=== PATIENT | male | born 1975 | race Caucasian/White ===

== ENCOUNTER 2017-05-23 17:20 | Emergency (ER) | payer OTHER ==
[~2017-05-23] VITALS: Ht 182.9 cm; Wt 116.3 kg
[~2017-05-23 17:20] MED LIST: PRED20TA PO
[2017-05-23 17:24] VITALS: TEMP 36.6; Ht 182.9 cm; Wt 116.3 kg
[2017-05-23] MEDS ORDERED: CEFTRIAXONE SOD INJ 1 GM ADDVIAL IV STA (17:49)
[2017-05-23] MEDS ORDERED: SULFAMETHOXAZOLE/TRIMETHOPRIM DS 800/160MG TAB PO STA (17:49)
--- NOTE | 2017-05-23 17:53 | EMERGENCY ROOM VISIT NOTE ---
History First contact with patient: 17:32 Chief Complaint: WOUND INFECTION Stated Complaint: INFECTION IN LT ANKLE Nursing Triage Summary: Pt reports noticed left ankle redness on Saturday seen at clinic yesterday and placed on Augmentin History of Present Illness The patient is a 41 year old male who presents to the Emergency Room with complaints of left leg infection. The patient states that he had an ingrown hair to the left anterior lower extremity for the last 5 days. He states that he was seen at urgent care yesterday. He states that they dug around in the wound. Did not take a culture. The place him on Augmentin. He states that he has had significant worsening swelling and redness. He rates his discomfort a 5 /10. He denies any fevers. He denies pain in his chest or trouble breathing. He denies any injury. He denies any joint pain. He denies any known injury. Tetanus is up-to-date. Review of Systems A 10 system review of systems was completed with positives and pertinent negatives listed in the HPI. Past Medical/Surgical History patient denies Social History Smoking Status: Former Smoker Alcohol Use: occasionally Occupation Status: employed Current/Historical Medications Scheduled Amoxicillin & Pot Clavulanate (Augmentin 875-125 mg), 1 TAB PO BID Sulfa/Trimethoprim (Bactrim Ds 800MG/160MG), 1 TAB PO BID Allergies Coded Allergies: No Known Allergies (Unverified , 05/23/17) Physical Exam Vital Signs Date Time Temp Pulse Resp B/P (MAP) Pulse Ox O2 Delivery O2 Flow Rate FiO2 05/23/17 19:08 79 20 121/73 97 05/23/17 17:24 36.6 88 18 131/84 97 Room Air Physical Exam VITALS: Vitals are noted on the nurse's note and reviewed by myself. Vital signs stable. The patient is afebrile GENERAL: This is a 41-year-old male, in no acute distress, nondiaphoretic, well- developed well-nourished. SKIN: There is an area of edema, erythema to the left anterior lower extremity just proximal to the ankle. There is no significant drainage. There is induration but no significant fluctuance. There is surrounding edema and cellulitis that extends to the foot and to the mid tib-fib. There is no tenting of the skin. Capillary reflex less than 2 seconds. HEAD: Normocephalic atraumatic. EARS: The external ears are normal in appearance. EYES: Pupils equal round and reactive to light and accommodation. Conjunctivae without injection, sclerae without icterus. Extraocular movements intact. NOSE: Patent, turbinates without inflammation or discharge. MOUTH: Mucous membranes moist. Tonsils are not enlarged. Pharynx without erythema or exudate. Uvula midline. Airway patent. Tongue does not deviate. NECK: Supple without nuchal rigidity. Cervical spine is nontender. No JVD. HEART: Regular rate and rhythm without murmurs gallops or rubs. LUNGS: Clear to auscultation bilaterally without wheezes, rales or rhonchi. No retractions or accessory muscle use. MUSCULOSKELETAL: No muscle atrophy,noted. Full range of motion without joint tenderness in all extremities. There is no pain with joint loading of the ankle. There is tenderness to palpation in the area of the abscess and cellulitis. Normal gait. Strength 5/5 throughout. NEURO: Patient was alert and oriented to person place and time. No focal neurological deficits. Medical Decision & Procedures Laboratory Results 05/23/17 18:00 Red Blood Count 4.74, Mean Corpuscular Volume 90.1, Mean Corpuscular Hemoglobin 31.2, Mean Corpuscular Hemoglobin Concent 34.7, Mean Platelet Volume 11.1, Neutrophils (%) (Auto) 71.3, Lymphocytes (%) (Auto) 17.8, Monocytes (%) (Auto) 8.8, Eosinophils (%) (Auto) 1.5, Basophils (%) (Auto) 0.3, Neutrophils # (Auto) 5.61, Lymphocytes # (Auto) 1.40, Monocytes # (Auto) 0.69, Eosinophils # (Auto) 0.12, Basophils # (Auto) 0.02 05/23/17 18:00 Test 05/23/17 18:00 White Blood Count 7.86 K/uL (4.8-10.8) Red Blood Count 4.74 M/uL (4.7-6.1) Hemoglobin 14.8 g/dL (14.0-18.0) Hematocrit 42.7 % (42-52) Mean Corpuscular Volume 90.1 fL (80-100) Mean Corpuscular Hemoglobin 31.2 pg (25-34) Mean Corpuscular Hemoglobin Concent 34.7 g/dl (32-36) Platelet Count 147 K/uL (130-400) Mean Platelet Volume 11.1 fL (7.4-10.4) Neutrophils (%) (Auto) 71.3 % Lymphocytes (%) (Auto) 17.8 % Monocytes (%) (Auto) 8.8 % Eosinophils (%) (Auto) 1.5 % Basophils (%) (Auto) 0.3 % Neutrophils # (Auto) 5.61 K/uL (1.4-6.5) Lymphocytes # (Auto) 1.40 K/uL (1.2-3.4) Monocytes # (Auto) 0.69 K/uL (0.11-0.59) Eosinophils # (Auto) 0.12 K/uL (0-0.5) Basophils # (Auto) 0.02 K/uL (0-0.2) RDW Standard Deviation 42.7 fL (36.4-46.3) RDW Coefficient of Variation 12.9 % (11.5-14.5) Immature Granulocyte % (Auto) 0.3 % Immature Granulocyte # (Auto) 0.02 K/uL (0.00-0.02) Anion Gap 6.0 mmol/L (3-11) Est Creatinine Clear Calc Drug Dose 148.6 ml/min Estimated GFR () 125.1 Estimated GFR (Non- 108.0 BUN/Creatinine Ratio 16.3 (10-20) Calcium Level 8.9 mg/dl (8.5-10.1) Total Bilirubin 0.9 mg/dl (0.2-1) Aspartate Amino Transf (AST/SGOT) 17 U/L (15-37) Alanine Aminotransferase (ALT/SGPT) 40 U/L (12-78) Alkaline Phosphatase 52 U/L (45-117) Total Protein 7.0 gm/dl (6.4-8.2) Albumin 4.0 gm/dl (3.4-5.0) Globulin 3.0 gm/dl (2.5-4.0) Albumin/Globulin Ratio 1.3 (0.9-2) Medications Administered Medications (Trade) Dose Ordered Sig/Angela Route Start Time Stop Time Status Last Admin Dose Admin Ceftriaxone Sodium (Rocephin Inj) 1 gm NOW STAT IV 05/23/17 17:49 05/23/17 17:50 DC 05/23/17 17:56 1 GM Trimethoprim/ Sulfamethoxazole (Septra Ds 800/ 160MG Tab) 1 tab NOW STAT PO 05/23/17 17:49 05/23/17 17:50 DC 05/23/17 17:56 1 TAB Trimethoprim/ Sulfamethoxazole (Sulfameth/ Trimeth Ds 800/ 160MG Home Pack) 1 homepack UD ONCE PO 05/23/17 18:45 05/23/17 18:46 DC 05/23/17 19:03 1 HOMEPACK Procedure I examined the patient. After saline and Betadine cleansing and 3 mL of 1% buffered lidocaine anesthesia, the abscess was incised with a number 15 scalpel blade. The area was unroofed. There was a small amount of purulent drainage and a culture was obtained. There is no significant cavity. The wound could not be packed. The area was cleaned with sterile saline and dressed with bacitracin and a bulky bandage and Jesse wrap. The patient tolerated the procedure well. ED Course The patient was seen and examined. Previous visits were reviewed. The patient does not have fever or leukocytosis. He does not have any significant electrolyte abnormality. The patient presents with an infection to the left anterior lower extremity. There may be some small area of abscess but there is moderate surrounding erythema. He has been taking Augmentin since yesterday and the symptoms are worsening. He states that the area had been draining but seems to have scabbed over. The area was unroofed as above. A culture was obtained. He was given 1 g IV Rocephin and oral Bactrim. He should continue the Augmentin and will be started on Bactrim. I did discuss the possibility of admission today for IV antibiotics. The patient would like to try outpatient treatment with the MRSA coverage. He was advised to return in 24-48 hours for recheck and left there is significant improvement in the area of redness and swelling. Medication Reconciliation: I attest that I have personally reviewed the patient' s current medication list. Blood pressure screening: The patient was found to have normal blood pressure on screening and does not require follow-up Medical Decision Differential diagnosis includes abscess, cellulitis, foreign body, spider bite, among others Impression Primary Impression: Abscess or cellulitis of ankle Departure Information Dispostion Home / Self-Care Condition GOOD Prescriptions Sulfa/Trimethoprim (Bactrim Ds 800MG/160MG) Tab 1 TAB PO BID for 10 Days, #20 TAB Prov: Dalila Colon PA-C 05/23/17 Referrals Jeanne Fraga D.OMichael (PCP) Patient Instructions Cellulitis - [facility], [facility] Additional Instructions Keep the area clean and dry Apply antibiotic ointment one to 2 times daily over the next 3-4 days Continue the Augmentin Also take the Bactrim one tablet every 12 hours for 10 days Return in 24-48 hours for a recheck unless there is marked improvement Return sooner with any worsening redness, swelling, warmth, fevers as you may need admission for IV antibiotics
[2017-05-23] MEDS ORDERED: XYLOCAINE 1%/SOD BICARB 20 ML VIAL INFIL ONE (18:00)
[2017-05-23 18:31] LABS: BASO % 0.3 %; BASO ABS # 0.02 K/uL (0-0.2); COMPLETE YES; EOS % 1.5 %; HEMATOCRIT 42.7 % (42-52); IG% 0.3 %; LYMPH % 17.8 %; MEAN CELL VOLUME 90.1 fL (80-100); MEAN CORPUSCULAR HEMOGLOBIN 31.2 pg (25-34); MEAN CORPUSCULAR HGB CONC 34.7 g/dl (32-36); MEAN PLATELET VOLUME 11.1 fL (7.4-10.4); MONO % 8.8 %; NEUT % 71.3 %; PLATELET COUNT 147 K/uL (130-400); RED BLOOD COUNT 4.74 M/uL (4.7-6.1); WHITE BLOOD COUNT 7.86 K/uL (4.8-10.8)
[2017-05-23] MEDS ORDERED: SEPTRA DS HOME PACK 1 EA VIAL PO ONE (18:45)
[2017-05-23 18:47] LABS: ALB/GLOB RATIO 1.3 (0.9-2); BUN/CREATININE RATIO 16.3 (10-20); CALCIUM 8.9 mg/dl (8.5-10.1); CREATININE 0.87 mg/dl (0.60-1.40); POTASSIUM 4.1 mmol/L (3.5-5.1)
[2017-05-23] MEDS ORDERED: SULF800T23 PO (18:58)
[2017-05-23 19:08] VITALS: BP 121/73; PULSE 79; O2SAT 97
[2017-05-23] MEDS ORDERED: AMOX875T PO (19:08)
== END 2017-05-23 19:09 | disposition home or self-care (01) ==
LOC: C.EDB 17:22 → C.EDA 19:09
DX: L02.416 Cutaneous abscess of left lower limb (principal); Z87.891 Personal history of nicotine dependence